=== PATIENT | male | born 1955 | race Hispanic/Latino ===

== ENCOUNTER 2017-09-14 07:55 | Day surgery (SDC) | payer BC ==
[2017-09-07 14:30] VITALS: BP 150/80
[2017-09-07 14:30] LABS: BASOPHILS % (AUTO) 0.6 % (0.0-5.0); EOSINOPHILS % (AUTO) 2.1 % (0.0-8.0); HEMATOCRIT 42.2 % (42-54); LYMPHOCYTES % (AUTO) 17.2 % (21.0-51.0); MEAN CORPUSCULAR HEMOGLOBIN 28.1 pg (27.0-33.0); MEAN CORPUSCULAR HGB CONC 34.3 g/dL (32.0-36.0); MONOCYTES % (AUTO) 5.1 % (3.0-13.0); PLATELET COUNT (AUTO) 358 K/uL (130-400); RED BLOOD CELL COUNT(AUTO) 5.15 MIL/uL (4.50-6.20); RED CELL DISTRIBUTION WIDTH 13.4 % (11.0-15.5); WHITE BLOOD COUNT (AUTO) 10.5 K/uL (4.8-10.8)
[2017-09-07 14:34] LABS: APPEARANCE,URINE CLEAR (CLEAR); BILIRUBIN,URINE NEGATIVE (NEGATIVE); COLOR,URINE YELLOW (YELLOW); GLUCOSE, URINE (UA) NEGATIVE (NEGATIVE); KETONES,URINE NEGATIVE (NEGATIVE); LEUKOCYTE ESTERASE ,URINE NEGATIVE (NEGATIVE); NITRATE,URINE NEGATIVE (NEGATIVE); OCCULT BLOOD,URINE NEGATIVE (NEGATIVE); PH,URINE 5.5 (5.0-8.0); PROTEIN,URINE NEGATIVE (NEGATIVE); UROBILINOGEN,URINE 0.2 mg/dL (0.2-1.0)
[2017-09-07 14:45] LABS: POTASSIUM 3.9 mmol/L (3.5-5.1)
[2017-09-14] VITALS (20 sets, daily range): BP systolic 115–141; BP diastolic 66–79
[~2017-09-14] VITALS: Ht 179.1 cm; Wt 91.0 kg
[~2017-09-14 07:55] MED LIST: AMLO1CAP PO; ROSU10TA PO; SERT25TA PO; TRAZ-144 PO
[2017-09-14] MEDS ORDERED: BUPIVACAINE/PF 0.25% 30ML VIAL IJ ONE (08:07)
[2017-09-14] MEDS ORDERED: LACTATED RINGERS 1000ML 1,000 ML IV ONE (08:31)
[2017-09-14] MEDS ORDERED: DEXAMETHASONE SOD PHOSPHATE 10MG/ML 1ML VIAL ONE (08:51)
[2017-09-14] MEDS ORDERED: GLYCOPYRROLATE 0.2 MG/ML 5 ML VIAL ONE (08:51)
[2017-09-14] MEDS ORDERED: FENTANYL CITRATE PF 50 MCG/1 ML 2ML VIAL ONE ×2 (08:51→09:45)
[2017-09-14] MEDS ORDERED: ONDANSETRON HCL 4 MG/2 ML VIAL ONE (08:51)
[2017-09-14] MEDS ORDERED: MIDAZOLAM HCL 1 MG/ML 2ML VIAL ONE (08:51)
[2017-09-14] MEDS ORDERED: LIDOCAINE PF 2% 5ML ABBOJECT ONE (08:51)
[2017-09-14] MEDS ORDERED: PROPOFOL 10 MG/ML 20ML VIAL IV ONE (08:51)
[2017-09-14] MEDS ORDERED: ROPIVACAINE 0.5% 5MG/ML 30ML IJ ONE (10:02)
[2017-09-14] MEDS ORDERED: MEPERIDINE-PF 25 MG/ML SYG ONE ×2 (10:48→10:58)
[2017-09-14] MEDS ORDERED: KETOROLAC TROMETHAMINE 30MG/ML ONE (11:04)
== END 2017-09-14 13:05 | disposition home or self-care (01) ==
LOC: DAH 07:55
PROVIDERS: ATTEND Surgery
DX: K40.20 Bilateral inguinal hernia, without obstruction or gangrene, not specified as recurrent (principal); F32.9 Major depressive disorder, single episode, unspecified; E78.4 Other hyperlipidemia; I10 Essential (primary) hypertension; E66.3 Overweight; K21.9 Gastro-esophageal reflux disease without esophagitis; Z68.28 Body mass index [BMI] 28.0-28.9, adult; Z90.49 Acquired absence of other specified parts of digestive tract; Z98.890 Other specified postprocedural states; Z79.899 Other long term (current) drug therapy; Z82.3 Family history of stroke
CPT/HCPCS: 36415; 49505; 80048; 81003; 85025; A4450; A4452; A4600; C1729; C1781; J1100; J1885; J2001; J2175 ×2; J2250; J2405; J2704; J2795; J3010 ×2; J3490; J7120 ×2

== ENCOUNTER 2025-02-27 06:23 | Observation (INO) | payer OTHER ==
[2025-02-25 09:35] VITALS: BP 152/71; PULSE 60; RESP 15; TEMP 98.8
[2025-02-25 09:38] LABS: APPEARANCE,URINE CLEAR (CLEAR); GLUCOSE, URINE (UA) NEGATIVE (NEGATIVE); LEUKOCYTE ESTERASE ,URINE NEGATIVE Leu/uL (NEGATIVE); NITRATE,URINE NEGATIVE (NEGATIVE); OCCULT BLOOD,URINE NEGATIVE (NEGATIVE)
[2025-02-25 09:40] LABS: IMMATURE GRANULOCYTE ABSOLUTE 0.05 K/uL (0-1); NUCLEATED RED BLOOD CELLS 0.0 % (0.0-0.19); PLATELET COUNT (AUTO) 285 K/uL (130-400); RED BLOOD CELL COUNT(AUTO) 5.62 MIL/uL (4.50-6.20); RED CELL DISTRIBUTION WIDTH 12.9 % (11.0-15.5); WHITE BLOOD COUNT (AUTO) 9.0 K/uL (4.8-10.8)
[2025-02-25 09:40] LABS: ADD UA MICROSCOPIC NO
[2025-02-25 09:49] LABS: CREATININE 1.0 mg/dL (0.5-1.3); GLOMERULAR FILTR. RATE CALC 81.0 mL/min (>90); GLUCOSE,RANDOM 112.0 mg/dL (70-105); SODIUM SERUM 139.0 mmol/L (136-145); UREA NITROGEN, BLOOD 13.0 mg/dL (7-18)
--- NOTE | 2025-02-25 09:50 | NUR ---
RE: IS INITIAL IS INITIAL TEACHING DONE BY RT SABA DURING PREOP.
[2025-02-25 09:51] LABS: INR 0.99 (0.85-1.15)
--- NOTE | 2025-02-26 14:00 | NUR ---
RE: MRSA REPORTED TO DR CARDONA THAT PATIENT POSITIVE FOR MRSA. RECEIVED ORDERS FOR VANCOMYCIN 1.5 GM IVPB TO BE GIVEN IN OR HOLDING AND PROVIDE NASAL DECOLONIZATION WITH MUPIROCIN OINTMENT IN OR HOLDING.
[2025-02-27] VITALS (29 sets, daily range): BP systolic 118–145; BP diastolic 63–84; PULSE 53–78; RESP 11–20; TEMP 97.8–98
[~2025-02-27] VITALS: Ht 172.7 cm; Wt 96.2 kg
[~2025-02-27 06:23] MED LIST changes: -ROSU10TA PO; +ROSU10TA22 PO; -TRAZ-144 PO; +TRAZ-185 PO
[2025-02-27] MEDS ORDERED: TRANEXAMIC ACID 1000MG/10ML ONE ×2 (06:32→11:56)
[2025-02-27] MEDS ORDERED: VANCOMYCIN 500MG+NS 100ML 100 ML IV ONE (06:33)
[2025-02-27] MEDS: MUPIROCIN OINTMENT 22 GM TUBE TP SCH (07:02)
[2025-02-27] MEDS: VANCOMYCIN HCL 1.5 GM/250 ML BAG IV SCH (07:03)
[2025-02-27] MEDS ORDERED: LIDOCAINE PF 100MG/5ML (2%) SYRINGE 5ML ONE (07:20)
[2025-02-27] MEDS ORDERED: GLYCOPYRROLATE 0.2 MG/ML 5 ML VIAL ONE (10:46)
[2025-02-27] MEDS ORDERED: NEOSTIGMINE METHYLSULFATE 1MG/ML IV ONE (10:47)
[2025-02-27] MEDS ORDERED: FERROUS FUMARATE 324 MG TABLET PO PRN (11:00)
[2025-02-27] MEDS ORDERED: PoTASSium chl 10% ELIXIR 20MEQ 20 MEQ/15 ML UDCUP PO PRN (11:00)
[2025-02-27] MEDS ORDERED: CALCIUM CARB 500MG PO PRN (11:00)
[2025-02-27] MEDS ORDERED: PoTASSium chloRIDE 20MEQ ER 20 MEQ ERTAB PO PRN (11:00)
--- NOTE | 2025-02-27 11:01 | OP ---
Operative Note: DATE OF PROCEDURE: 02/27/25 SURGEON: WILLIAMS CARDONA MD DATE PULLER: [Silvia Perla and Nitza Becerra, YOUTH DEVELOPMENT PROFESSIONAL's] ANESTHESIA: [General anesthesia plus regional block] ANESTHESIOLOGIST/CERTIFIED HOME HEALTH AIDE: [Maureen Allan CRNA] PREOPERATIVE DIAGNOSIS: [Left knee osteoarthritis] POSTOPERATIVE DIAGNOSIS: [Same] IMPLANTS: [[employer]HE[employer] Journey II system. Femur size seven, left, PS. Tibia base plate size seven left. Tibial liner size seven by nine PS. Rose resurfacing patella size 38, asymmetric] PROCEDURE: [Left total knee arthroplasty] ESTIMATED BLOOD LOSS: [100 mL] INDICATIONS: [69-year-old male with a history of pain to the left knee secondary to osteoarthrosis involving mostly the patellofemoral joint as well as the lateral femoral condyle. The patient has been treated conservatively with a longer adequate responded to treatment being admitted for a left total knee arthroplasty. Procedure understood, risks, benefits and possible complications and agreed signed the consent form] DESCRIPTION OF PROCEDURE: [After adequate general anesthesia was achieved and regional block obtained the left lower extremity was prepped and draped in the usual manner previous placement of the tourniquet in the proximal thigh. The ex tremity was then elevated and exsanguinated with an Esmarch bandage and the tourniquet inflated to 300 mmHg the Esmarch band been then removed. With the knee in flexion a longitudinal incision was then made in the anterior aspect through the skin followed by dissection of the subcutaneous tissue. A bone infusion needle was then inserted just medial to the tibial tuberosity and th rough this needle we injected into the bone a solution of normal saline 50 mL mixed with 500 mg of vancomycin. The needle was removed. A paramedian approach was then made with the Bovie cautery cutting through the quadriceps tendon, medial patellar retinaculum and patellar tendon retinaculum. The retropatellar tendon fat was then excised and the soft tissue elements of the tibia were elevated subperiosteally and retractors were applied medially and laterally . The anterior and posterior cruciate ligaments were resected. With the use of a drill a starting hole was made in the distal femur entering the intramedullary canal and then after removal of the drill an intramedullary guide was inserted with a 5 degree valgus block that touched the distal femur and to this the distal femoral cutting guide was then applied anteriorly and was secured to the distal femur with the use of pins. The intramedullary guide was then removed and with the use of the oscillating saw we proceeded to resect the distal femur removing the fragments and the guide. The femoral sizer was then applied distally and drill holes were made removing the sizer and the 4-in-1 cutting block was then inserted and the anterior, posterior and chamfer cuts were made removing the fragments and the block. The PS cutting guide was then inserted and the intercondylar cut was made, 1st with a Reamer and then with the sq osteo tome. After the fragments were removed as well as the guide. The posterior cruciate ligament retractor was then inserted posterior to the tibia and this was brought forward proceeding then to apply the external tibial alignment guide and secured the proximal cutting guide to the tibia with the use of pins. With the use of the oscillating saw the proximal cut to the tibia tibia was made. The bone fragment was removed and the trial tibia plate was chosen. At this point the menisci were removed sharply and with the use of the curved osteotome the posterior osteophytes of the femur were removed. The trial components were then inserted at the femur and tibia with a trial tibial liner bringing the knee into extension noticing that the patient had a very stable knee in flexion, extension and with valgus and varus stress. The knee was maintained in extension and the patella was then addressed proceeding to measure its thickness and then with the use of the oscillating saw we removed eight mm from the articular surface and restored the height with application of a trial component after 3 peg holes were made. The patellofemoral ligament was removed and then the patellofemoral tracking was checked noticing to be normal. At this moment all the components were removed, the tibia after the metaphyseal defect was created and while cement was being mixed on the back table we proceeded to irrigate the joint with antibiotic solution and then cover the entry to the femoral canal with a bone plug. Once the cement was ready we proceeded to apply it first to the tibia surface inserting the final component and then to the femoral surface and inserted the final component removing the excess cement and then applying a trial liner bringing the knee into extension for compression. Then we proceeded to irrigate the patella surface and dried it applying then bone cement and the final patellar component was inserted and was secured with application of a clamp. The joint was irrigated with a warm diluted Betadine solution while the cement dried followed by irrigation with antibiotic solution. The trial liner was removed as well as the patellar clamp and we proceeded then to irrigate the posterior aspect of the joint to remove all the remaining debris and the final tibial liner was inserted and locked against the tibia. The range of motion was checked and noticed to be adequate with full extension and flexion, no laxity in valgus or varus stress and with adequate patellofemoral tracking. The patient had no anterior or posterior drawer. The tourniquet was then deflated and this was followed by hemostasis and the wound was then closed with approximation of the quadriceps tendon, patellar retinaculum and patellar tendon retinaculum with #1 Vicryl close stitches alternating with #1 Ethibond stitches, and closure of the subcutaneous tissue with 2-0 Monocryl inverted stitches and the skin was closed with 3-0 Monocryl subcuticularly. The wound was covered with a suction dressing followed by application of an Vinny bandage for compression and the drapes were then removed transferring the patient to the hospital bed and taken to recovery room for follow-up by anesthesia. There were no complications during the procedure.] WILLIAMS CARDONA MD Feb 27, 2025 11:00
--- NOTE | 2025-02-27 13:25 | NUR ---
PATIENT ARRIVED TO THE UNIT. VS: 125/70, 66 BPM, 20 RR, 94 SP02 ON RA, 97.8 TEMP. PT IS LAYING ON THE BED WITH AT BEDSIDE. L. KNEE WRAPPED WITH MAGDI BANDAGE. DRESSING CLEAN AND DRY. NEURO ASSESSMENT A&O X4, CAP REFILL LESS THAN 3 ON L. TOES. BLE PULSES STRONG AND PRESENT. IS TEACHING WAS PROVIDED TO PT AND . BOTH VERBALIZED UNDERSTANDING. PAIN 8/10. ALL PAIN MEDICATIONS HAVE BEEN ADMINISTERED IN PACU. PLACED ICE PACKS TO L. KNEE AND WILL CONTINUE TO MONITOR. NO OTHER COMPLAINTS OR S/S OF DISTRESS.
[2025-02-27] MEDS: CLINDAMYCIN IVPB 900MG/50ML 0 ML IV ONE (13:38)
[2025-02-27] MEDS: GABAPENTIN 300 MG CAPSULE ONE (13:39)
[2025-02-27] MEDS: FAMOTIDINE 20MG VIAL IV ONE (13:40)
--- NOTE | 2025-02-27 16:18 | NUR ---
PT eval : 2 attempts made up to the time of this note. Pt in bed with 7/10 pain. Per patient and spouse they have requested more pain medications. Nurse aware. PT applied SCDs. Pt already has ice. PT to follow
[2025-02-27] MEDS: 0.9%NACL 1000ML 1,000 ML IV SCH (16:52)
--- NOTE | 2025-02-27 17:10 | NUR ---
ORTHO COORDINATOR: ATTEMPTED TEACHING, PHYSICAL THERAPY AT BEDSIDE.
[2025-02-27] MEDS: VANCOMYCIN 1G/250ML KIT 250 ML IV SCH (17:36)
--- NOTE | 2025-02-27 17:42 | NUR ---
APPLIED MUPIROCIN 2 BOTH NOSTRILS. PATIENT TOLERATED WELL.
--- NOTE | 2025-02-27 20:00 | NUR ---
received pt from previous shift nurse pt with vinod bandage ice to ltka scds to bles
[2025-02-27] MEDS: ASPIRIN 81 MG EC TAB PO SCH (21:32)
[2025-02-27] MEDS: FAMOTIDINE 20MG TAB PO SCH (21:32)
[2025-02-28] VITALS (7 sets, daily range): BP systolic 129–159; BP diastolic 65–86; PULSE 69–83; RESP 18–20; TEMP 97.8–98.7; O2SAT 95–96
--- NOTE | 2025-02-28 | NUR ---
pt with ice to ltka resting scds in place
--- NOTE | 2025-02-28 05:30 | NUR ---
pt up to chair ice to site scds no vinod bandage( removed.)
[2025-02-28 05:58] LABS: NUCLEATED RED BLOOD CELLS 0.0 % (0.0-0.19); PLATELET COUNT (AUTO) 260.0 K/uL (130-400); RED BLOOD CELL COUNT(AUTO) 4.7 MIL/uL (4.50-6.20); RED CELL DISTRIBUTION WIDTH 12.6 % (11.0-15.5); WHITE BLOOD COUNT (AUTO) 11.6 K/uL (4.8-10.8)
[2025-02-28 06:14] LABS: CREATININE 0.9 mg/dL (0.5-1.3); GLOMERULAR FILTR. RATE CALC 92.0 mL/min (>90); GLUCOSE,RANDOM 129.0 mg/dL (70-105); SODIUM SERUM 140.0 mmol/L (136-145); UREA NITROGEN, BLOOD 12.0 mg/dL (7-18)
--- NOTE | 2025-02-28 08:02 | PN ---
Ortho postop day one. This morning the patient is awake alert and oriented. He is already out of bed seated in a chair resting comfortably no acute distress enjoying his breakfast. is at the bedside. He is been afebrile vital signs have been stable. Voiding on his own without difficulty. Laboratory results reviewed. Noted to have a drop in hemoglobin and hematocrit as expected after TKA. Patient is currently asymptomatic we will continue to observe and treat per protocol as necessary. Reinforced incentive spirometry. The Vinny bandage has been removed. The re dressing is flashing green. Dressing intact. Gastrocnemius soft nontender. Negative Homans. Ice is present to the extremity. He did ambulate yesterday did very well with physical therapy. Anticipating discharge goal is home with a home health/PT. Therapy this morning. Operative findings discussed with the patient Assessment: Status post left total knee arthroplasty. Acute postoperative blood loss anemia. Plan: Continue with Dr. Saleem was TKA protocol and discharge planning. Acute postoperative blood loss anemia addressed with the protocol as necessary Vitals/Labs Vital Signs Date Time Temp Pulse Resp B/P (MAP) Pulse Ox O2 Delivery O2 Flow Rate FiO2 02/28/25 04:00 98.1 69 18 138/68 95 Room Air 02/27/25 20:00 0 21 Laboratory Tests 02/28/25 05:42 Medications Current Medications Vancomycin HCl 1.5 gm ONCE IV Last administered on 02/27/25at 07:03; Start 02/27/25 at 06:30; Stop 02/27/25 at 12:30; Status DC Mupirocin APPLY DIRETCED ONCE TP Last administered on 02/27/25at 07:02; Start 02/27/25 at 06:30; Stop 02/27/25 at 12:30; Status DC Tranexamic Acid 1,000 mg STK-MED ONCE .ROUTE; Start 02/27/25 at 06:32; Stop 02/27/25 at 06:36; Status DC Vancomycin HCl 100 ml @ As Directed STK-MED ONCE IV; Start 02/27/25 at 06:33; Stop 02/27/25 at 06:36; Status DC Clindamycin HCl/ Dextrose 0 ml @ As Directed STK-MED ONCE IV; Start 02/27/25 at 07:06; Stop 02/27/25 at 07:06; Status DC Gabapentin 300 mg STK-MED ONCE .ROUTE; Start 02/27/25 at 07:08; Stop 02/27/25 at 07:08; Status DC Acetaminophen 100 ml @ As Directed STK-MED ONCE .ROUTE; Start 02/27/25 at 07:08; Stop 02/27/25 at 07:08; Status DC Famotidine 20 mg STK-MED ONCE IV; Start 02/27/25 at 07:08; Stop 02/27/25 at 07:08; Status DC Cefazolin Sodium 1 gm STK-MED ONCE .ROUTE; Start 02/27/25 at 07:18; Stop 02/27/25 at 07:18; Status DC Lidocaine HCl 100 mg STK-MED ONCE .ROUTE; Start 02/27/25 at 07:20; Stop 02/27/25 at 07:20; Status DC Ropivacaine 150 mg STK-MED ONCE .ROUTE; Start 02/27/25 at 07:20; Stop 02/27/25 at 07:20; Status DC Ketamine HCl 50 mg STK-MED ONCE .ROUTE; Start 02/27/25 at 07:20; Stop 02/27/25 at 07:21; Status DC Propofol 200 mg STK-MED ONCE IV; Start 02/27/25 at 07:20; Stop 02/27/25 at 07:21; Status DC Rocuronium [place] 50 mg STK-MED ONCE .ROUTE; Start 02/27/25 at 07:20; Stop 02/27/25 at 07:21; Status DC Fentanyl Citrate 100 mcg STK-MED ONCE .ROUTE; Start 02/27/25 at 07:21; Stop 02/27/25 at 07:21; Status DC Cefazolin Sodium 2 gm STK-MED ONCE .ROUTE; Start 02/27/25 at 07:54; Stop 02/27/25 at 07:54; Status DC Rocuronium [place] 50 mg STK-MED ONCE .ROUTE; Start 02/27/25 at 08:04; Stop 02/27/25 at 08:04; Status DC Ondansetron HCl 4 mg STK-MED ONCE .ROUTE; Start 02/27/25 at 08:14; Stop 02/27/25 at 08:15; Status DC Dexamethasone Sodium Phosphate 10 mg STK-MED ONCE .ROUTE; Start 02/27/25 at 08:14; Stop 02/27/25 at 08:15; Status DC Cefazolin Sodium 2 gm STK-MED ONCE IVPB Last administered on 02/27/25at 08:21; Start 02/27/25 at 08:21; Stop 02/27/25 at 08:50; Status DC Tranexamic Acid 1,000 mg STK-MED ONCE IV Last administered on 02/27/25at 08:24; Start 02/27/25 at 08:24; Stop 02/27/25 at 08:50; Status DC Vancomycin HCl 500 mg STK-MED ONCE IJ Last administered on 02/27/25at 08:48; Start 02/27/25 at 08:48; Stop 02/27/25 at 08:50; Status DC Cefazolin Sodium 3 gm STK-MED ONCE IVPB Last administered on 02/27/25at 08:49; Start 02/27/25 at 08:49; Stop 02/27/25 at 08:50; Status DC Glycopyrrolate 1 mg STK-MED ONCE .ROUTE; Start 02/27/25 at 10:46; Stop 02/27/25 at 10:47; Status DC Neostigmine Methylsulfate 10 mg STK-MED ONCE IV; Start 02/27/25 at 10:47; Stop 02/27/25 at 10:47; Status DC Sodium Chloride 1,000 ml @ 100 mls/hr Q10H IV Last administered on 02/27/25at 16:52; Start 02/27/25 at 11:00; Stop 02/28/25 at 10:59 Polyethylene Glycol 17 gm DAILY PO; Start 02/28/25 at 09:00; Stop 03/30/25 at 08:59 Bisacodyl 10 mg DAILY PRN RC; Start 03/02/25 at 11:00; Stop 04/01/25 at 10:59 Vancomycin HCl 250 ml @ 125 mls/hr Q12H IV Last administered on 02/28/25at 05:55; Start 02/27/25 at 17:00; Stop 02/28/25 at 06:59; Status DC Ketorolac Tromethamine 15 mg Q6H PRN IV Last administered on 02/27/25at 12:48; Start 02/27/25 at 11:00; Stop 03/04/25 at 10:59 Famotidine 20 mg BID PO Last administered on 02/27/25at 21:32; Start 02/27/25 at 21:00; Stop 03/29/25 at 20:59 Tamsulosin HCl 0.4 mg DAILY PO; Start 02/28/25 at 09:00; Stop 03/30/25 at 08:59 Ferrous Fumarate 324 mg DAILY PRN PO; Start 02/27/25 at 11:00; Stop 03/29/25 at 10:59 Temazepam 15 mg HS PRN PO; Start 02/27/25 at 11:00; Stop 03/29/25 at 10:59 Ondansetron HCl 4 mg Q6H PRN IVP; Start 02/27/25 at 11:00; Stop 03/29/25 at 10:59 Calcium Carbonate 500 mg Q12H PRN PO; Start 02/27/25 at 11:00; Stop 03/29/25 at 10:59 Diphenhydramine HCl 25 mg Q6H PRN IVP; Start 02/27/25 at 11:00; Stop 03/29/25 at 10:59 Cefazolin Sodium 2 gm Q8H IVP; Start 02/27/25 at 16:00; Stop 02/28/25 at 00:01; Status Cancel Potassium Chloride 100 ml @ 100 mls/hr AD PRN IV; Start 02/27/25 at 11:00; Stop 03/29/25 at 10:59 Potassium Chloride 20 meq AD PRN PO; Start 02/27/25 at 11:00; Stop 03/29/25 at 10:59 Potassium Chloride 20 meq AD PRN PO; Start 02/27/25 at 11:00; Stop 03/29/25 at 10:59 Oxycodone HCl 5 mg Q4H PRN PO Last administered on 02/28/25at 05:55; Start 02/27/25 at 11:00; Stop 03/06/25 at 10:59 Oxycodone HCl 10 mg Q4H PRN PO Last administered on 02/27/25at 21:43; Start 02/27/25 at 11:00; Stop 03/06/25 at 10:59 Tramadol HCl 50 mg Q6H PRN PO Last administered on 02/27/25at 13:10; Start 02/27/25 at 11:00; Stop 03/04/25 at 10:59 Acetaminophen 1,000 mg Q8H PO Last administered on 02/28/25at 01:59; Start 02/27/25 at 11:00; Stop 03/29/25 at 10:59 Aspirin 81 mg BID PO Last administered on 02/27/25at 21:32; Start 02/27/25 at 21:00; Stop 03/29/25 at 20:59 Fentanyl Citrate 100 mcg STK-MED ONCE .ROUTE Last administered on 02/27/25at 11:25; Start 02/27/25 at 11:20; Stop 02/27/25 at 11:20; Status DC Tranexamic Acid 1,000 mg STK-MED ONCE .ROUTE; Start 02/27/25 at 11:56; Stop 02/27/25 at 11:56; Status DC Oxycodone HCl 5 mg STK-MED ONCE .ROUTE; Start 02/27/25 at 12:09; Stop 02/27/25 at 12:09; Status DC Ketorolac Tromethamine 15 mg STK-MED ONCE .ROUTE; Start 02/27/25 at 12:45; Stop 02/27/25 at 12:46; Status DC Tramadol HCl 50 mg STK-MED ONCE .ROUTE; Start 02/27/25 at 13:09; Stop 02/27/25 at 13:09; Status DC Trazodone HCl 50 mg HS PO Last administered on 02/27/25at 21:32; Start 02/27/25 at 21:00; Stop 03/29/25 at 20:59 Miscellaneous Medication 1 each DAILY PO; Start 02/28/25 at 09:00; Stop 02/27/25 at 14:06; Status DC Atorvastatin Calcium 20 mg HS PO Last administered on 02/27/25at 21:32; Start 02/27/25 at 21:00; Stop 03/29/25 at 20:59 Sertraline HCl 25 mg DAILY PO; Start 02/28/25 at 09:00; Stop 03/30/25 at 08:59 Home Med (Amlodipine Besylate/ Benazepril (Lot... DAILY PO; Start 02/28/25 at 09:00; Stop 03/30/25 at 08:59 Cefazolin Sodium 2 gm Q8H IVP Last administered on 02/28/25at 01:59; Start 02/27/25 at 17:00; Stop 02/28/25 at 01:01; Status DC MARAL WILLIS NP Feb 28, 2025 08:02
[2025-02-28] MEDS: AMLODIPINE BESYLATE PO SCH (09:00)
[2025-02-28] MEDS: BENAZEPRIL PO SCH (09:00)
--- NOTE | 2025-02-28 11:30 | NUR ---
[facility] CM MET WITH PT INITIAL ASSESSMENT DONE. PATIENT IS INDEPENDENT PRIOR TO SURGERY, LIVES AT HOME WITH HER SPOUSE. AT HOME PATIENT HAS A CANE AND BPM. DENIES ANY OTHER EQUIPMENT/SERVICES. FEELS SAFE TO GO BACK HOME, STILL DRIVE, SPOUSE ABLE TO ASSIST WITH TRANSPORTATION AND NEEDS NECESSARY. DISCUSSED MD RECOMMENDATIONS HOME W/HOME HEALTH FOR PT, PT WILL ALSO NEED A STANDARD WALKER. PT AGREEABLE, CONSENT SIGNED SONDRA FOR [facility] AND [facility]. [facility] HOME W/ & DME ONCE APPROVED. CM TO CONTINUE TO FOLLOW UP. Addendum: 02/28/25 at 1513 by ANGEL PALACIOS LVN Amended: Links added.
--- NOTE | 2025-02-28 16:45 | NUR ---
ORTHO COORDINATOR: REINFORCED TEACHING PATIENT IN BED, AT BEDSIDE. B SCD SLEEVES IN PLACE AND FUNCTIONING. TERESITA SYSTEM INTACT AND FUNCTIONING, CLEAN, DRY AND INTACT. PATIENT HAS NOT SHOWERED TODAY, ENCOURAGED HIM TO SHOWER, RATIONALE PROVIDED. CARE OF TERESITA DRESSING REVIEWED. PATIENT INTENDS TO DISCHARGE HOME WITH HOME HEALTH PHYSICAL THERAPY, NEXT STEPS IN PROCESS REVIEWED AND QUESTIONS ANSWERED. PATIENT PASSING GAS. PATIENT ENCOURAGED TO CONTINUE PREMEDICATING PRIOR TO PHYSICAL THERAPY AND DURING PERIODS OF HIGH ACTIVITY, ENCOURAGED TO CONTINUE USE OF INCENTIVES SPIROMETER UNTIL AMBULATING MORE, STAY HYDRATED. PATIENT REPORTS EXPERIENCING CONSTIPATION WITH NARCOTICS. PATIENT ENCOURAGED TO CONTINUE FOOT FLEXION AND EXTENSION EXERCISES, RATIONALE PROVIDED. PATIENT AND VERBALIZED UNDERSTANDING TO ALL INSTRUCTIONS. NO ADDITIONAL QUESTIONS/CONCERNS AT THIS TIME.
--- NOTE | 2025-02-28 18:30 | NUR ---
ORTHO COORDINATOR: REINFORCED TEACHING. PATIENT IN BED, AT BEDSIDE. PATIENT DRESSING IN STREET CLOTHES, DID NOT SHOWER BUT GAVE FULL BED BATH THIS MORNING. PATIENT PAIN CONTROLLED. ENCOURAGED PATIENT TO CONTINUE WITH INCENTIVE SPIROMETRY UNTIL AMBULATING CONSISTENTLY, TO CONTINUE WITH FOOT FLEXION AND EXTENSION EXERCISES, RATIONALE PROVIDED. ENCOURAGED PATIENT TO CONTINUE PERFORMING SELF PAIN ASSESSMENTS AND PREMEDICATING PRIOR TO PHYSICAL THERAPY AND PERIODS OF HIGH ACTIVITY WHILE IN REHAB. PATIENT IS PASSING GAS, NO BOWEL MOVEMENT. NO ADDITIONAL QUESTIONS OR CONCERNS AT THIS TIME. Addendum: 02/28/25 at 1855 by ALICE STONE RN RN PLEASE DISREGARD ABOVE NOTE.
[2025-03-01] VITALS: BP 148/71; PULSE 79; RESP 18; TEMP 98.2
[2025-03-01 04:00] VITALS: BP 157/77; PULSE 89; RESP 18; TEMP 99.6
[2025-03-01 08:00] VITALS: BP 140/76; PULSE 89; RESP 18; TEMP 98.4; O2SAT 95
--- NOTE | 2025-03-01 10:40 | NUR ---
VICKI NOTE: POC PT HAS APPROVAL FOR [facility]. PENDING APPROVAL AND DELIVERY FOR [facility]ALK[facility]. CM LEND WALKER IN ROOM TODAY, INSTRUCTED PT TO HAVE FAMILY RETURN BORROWED WALKER ONCE OWN WALKER DELIVERED BY [facility] [place] [facility] TO FOLLOW UP W/[facility] MONDAY. PT SAFE TO DC HOME W/ ONCE MD CLEARED. PRIMARY NURSE ADELE AUGUSTE. CM TO CONTINUE TO FOLLOW UP.
[2025-03-01 12:01] VITALS: BP 150/77; PULSE 84; RESP 19; TEMP 98.2
[2025-03-01 12:02] VITALS: BP 143/74; PULSE 86; RESP 19; TEMP 98.2
--- NOTE | 2025-03-01 13:47 | DS ---
DISCHARGE SUMMARY [Date of admission: 02/27/2025 Date of discharge: 03/01/2025 Final diagnosis: Left Knee osteoarthritis Surgical procedures: Left total Knee arthroplasty on 02/27/2025 Summary of History and Physical: The patient is a 69 year-old male with history of severe arthrosis to the left knee that has been present for several years and has been treated conservatively with no longer adequate response to treatment. The patient is being admitted for total knee arthroplasty. Previous medical history: Hypertension, hypercholesterolemia, sleep apnea, seasonal allergies, pseudo gout, cervical radiculopathy, gallstones, osteoarthritis. Previous surgical history: Bilateral knee arthroscopies, cholecystectomy, right total knee arthroplasty, hernia repair. Family history: Parents alive Social history: Negative for use of tobacco or alcohol. Allergies: Adverse reaction to amoxicillin. Review of system: Negative on admission Hospital course: The patient was admitted and taken to the operating room for a total knee arthroplasty, procedure that went uneventful. Postoperatively the patient remained hemodynamically stable and afebrile. The patient received antibiotic and anticoagulation prophylaxis as per protocol. The patient was evaluated by physical therapy and started rehabilitation treatment with ambulation with the use of walker, weightbearing as tolerated, range of motion exercises and bed transfers. The patient was also evaluated by case management and arrangements were made for discharge. The patient tolerated diet well. On postop day #2 all the arrangements were completed and the patient was dismissed. Condition on discharge: Good Disposition: The patient will be dismissed home with home health. Follow-up will be done at the office in 3 weeks. The patient is to continue with physical therapy and rehabilitation at home and be ambulatory with the use of a walker, weightbearing as tolerated. Continue taking pain medication as instructed as well as anticoagulation prophylaxis. Continue with home medications also as instructed and continue with pre admission diet.] WILLIAMS CARDONA MD Mar 01, 2025 13:47
[2025-03-01] MEDS ORDERED: HYDR-4060 PO (13:52)
== END 2025-03-01 16:52 | disposition home or self-care (01) ==
LOC: DAH 06:23 → DAHIP 06:24 → 4CH 13:25
PROVIDERS: ADMIT Orthopaedic Surgery; ATTEND Orthopaedic Surgery
DX: M17.12 Unilateral primary osteoarthritis, left knee (principal); I10 Essential (primary) hypertension; E78.00 Pure hypercholesterolemia, unspecified; D62 Acute posthemorrhagic anemia; M54.12 Radiculopathy, cervical region; M25.562 Pain in left knee; M10.9 Gout, unspecified; Z79.899 Other long term (current) drug therapy; Z98.890 Other specified postprocedural states
CPT/HCPCS: 80048 ×2; 85025; 85610; 87086; 81003; 36415 ×2; 87641; 27447; 96365; 96366 ×3; 96375 ×2; 96368; 88311; 88304; 97161; 97116 ×4; 97530 ×3; 85027; 96376; G0378 ×54; A4223 ×3; A4663; J7120; J0690 ×6; J1308; J3010 ×2; J3490 ×7; J1100; J2003; J2704; J2405; J2710; J3373 ×4; J2795; J1885 ×3; J3375; A9272; C1776 ×2; A4649 ×3; A4930 ×2; C1713; A5120; A4215; A4222; A4221; A4216; 96367

== ENCOUNTER → 2025-06-02 | Outpatient (CLI) | payer OTHER ==
[~2025-06-02] MED LIST changes: +HYDR-4060 PO
[2025-06-02 12:55] LABS: IMMATURE GRANULOCYTE ABSOLUTE 0.05 K/uL (0-1); NUCLEATED RED BLOOD CELLS 0.0 % (0.0-0.19); PLATELET COUNT (AUTO) 297 K/uL (130-400); RED BLOOD CELL COUNT(AUTO) 5.73 MIL/uL (4.50-6.20); RED CELL DISTRIBUTION WIDTH 14.6 % (11.0-15.5); WHITE BLOOD COUNT (AUTO) 8.6 K/uL (4.8-10.8)
[2025-06-02 13:12] LABS: ERYTHROCYTE SEDIMENTATION RATE 18 MM/HR (0-20)
== END | disposition home or self-care (01) ==
LOC: LAB 12:26
PROVIDERS: ATTEND Orthopaedic Surgery
DX: M25.462 Effusion, left knee (principal)
CPT/HCPCS: 36415; 85025; 85651; 86140